=== PATIENT | male | born 1980 | race Caucasian/White ===

== ENCOUNTER 2016-05-10 16:10 | Emergency (ER) | payer BC ==
[~2016-05-10] VITALS: Wt 93.5 kg
[~2016-05-10 16:10] MED LIST: CYCL-319 PO; CYCL5TAB PO; HYDR-3498 PO; HYDR-906 PO; IBUP-1542 PO; METAM PO; ONDA4TAB14 PO; ONDA4TAB35 PO; ZOF8 PO
[2016-05-10 17:39] LABS: ADD UMIC NO; URINE BILIRUBIN (Dip) NEGATIVE (NEGATIVE); URINE BLOOD (Dip) NEGATIVE (NEGATIVE); URINE COLOR LT. YELLOW (YELLOW); URINE GLUCOSE (Dip) NEGATIVE (NEGATIVE); URINE KETONES (Dip) NEGATIVE (NEGATIVE); URINE LEUKOCYTE ESTERASE (Dip) NEGATIVE (NEGATIVE); URINE NITRITE (Dip) NEGATIVE (NEGATIVE); URINE TOTAL PROTEIN (Dip) NEGATIVE (NEGATIVE); URINE UROBILINOGEN (Dip) 0.2 E.U./dL (0.1-1.0)
[2016-05-10 17:44] LABS: ALBUMIN 4.2 g/dl (3.3-4.9)
[2016-05-10 17:45] LABS: BASOPHILS % 0.8 % (0.0-2.0); EOSINOPHILS # 0.1 10^3/ul (0.0-0.5); EOSINOPHILS % 1.7 % (0.0-7.0); HEMATOCRIT 44.4 % (42.0-52.0); HEMOGLOBIN 15.8 g/dl (14.0-18.0); LYMPHOCYTES # 1.9 10^3/ul (0.8-2.9); LYMPHOCYTES % 33.9 % (15.0-51.0); MEAN CORPUSCULAR HEMOGLOBIN 32.3 pg (29.0-33.0); MEAN CORPUSCULAR HGB CONC 35.5 g/dl (32.0-37.0); MEAN CORPUSCULAR VOLUME 90.9 fl (82.0-101.0); MEAN PLATELET VOLUME 8.8 fl (7.4-10.4); MONOCYTE # 0.4 10^3/ul (0.3-0.9); MONOCYTES % 7.9 % (0.0-11.0); NEUTROPHIL # 3.1 10^3/ul (1.6-7.5); NEUTROPHILS % 55.7 % (39.0-77.0); PLATELET COUNT 194 10^3/UL (140-440); POTASSIUM 3.7 mmol/L (3.5-5.1); RED BLOOD COUNT 4.88 10^6/ul (4.70-6.10); UNCORRECTED WBC 5.6 10^3/ul (4.8-10.8); WHITE BLOOD COUNT 5.6 10^3/ul (4.8-10.8)
[2016-05-10 17:46] LABS: CONDITION 1
[2016-05-10 17:47] LABS: ALBUMIN/GLOBULIN RATIO 1.31; BILIRUBIN,INDIRECT 0.4 mg/dl (0-1.1); BILIRUBIN,TOTAL 0.4 mg/dl (0.2-1.3); CREATININE 1.01 mg/dl (0.61-1.24); TOTAL PROTEIN 7.4 g/dl (6.1-8.1)
[2016-05-10 17:48] LABS: CALCIUM 9.3 mg/dl (8.4-10.2)
[2016-05-10] MEDS ORDERED: SOD CHLORIDE 0.9% 100 ML ONE (18:10)
[2016-05-10] MEDS ORDERED: IOHEXOL 300MG/ML 150 ML BTL ONE (18:10)
[2016-05-10] MEDS ORDERED: ONDANSETRON 4 MG INJ IV STA (18:24)
[2016-05-10] MEDS ORDERED: DIPHENHYDRAMINE 50 MG INJ IV ONE (18:30)
[2016-05-10] MEDS ORDERED: EPINEPHrine 1 MG INJ SC STA (18:35)
[2016-05-10 19:07] VITALS: BP 125/83; PULSE 84; RESP 16
--- NOTE | 2016-05-10 19:24 | RADRPT ---
PROCEDURE: CT abdomen and pelvis with contrast. CLINICAL INDICATION: Abdominal pain with nausea and vomiting TECHNIQUE: CT scan of the abdomen and pelvis without contrast was [facility] axial imaging from the lung bases through the pubis symphysis. The patient was scanned after the uneventful intravenous administration of 100 cc of Omnipaque-300. Sagittal and coronal r eformatted images were made. CTDI vol 25.40 mGy and DLP 825.23 mGy-cm One of the following 3 dose reduction techniques were used during this CT examination: automated exp osure control; adjustment of the mA and /or kV according to patient size; or use of iterative recons truciton technique. COMPARISON: CT abdomen pelvis dated 08/07/2015 FINDINGS: CT abdomen: The lung bases are clear. The visualized heart size is normal. No pericardial or pleural effusions are present. The visualized liver is of normal size and attenuation. The spleen, pancreas, decompressed gallblad maria luisa, and bilateral adrenal glands are normal. The bilateral kidneys are normal with normal contrast opacification and secretion. No evidence for hydroureter nephrosis is present. The visualized bowel demonstrates mild diverticulosis without evidence for acute diverticulitis or a ppendicitis. The aorta is normal without evidence for aneurysmal dilatation. No evidence for abdominal ascites or pneumoperitoneum is present. CT pelvis: The visualized bowel, including the appendix, is normal in appearance. Mild prostatic enlargement is present with prostatic calcifications. No evidence for masses in the pelvis ascites or pneumoperit oneum is present. The visualized osseous structures are normal. No evidence for lytic or blastic lesions are present. IMPRESSION: 1. No evidence for acute intra-abdominal or pelvic pathology. 2. Mild diverticulosis without evidence for acute diverticulitis or appendicitis. 3. Mild prostatic enlargement with prostatic calcifications. RPTAT: HDC .Andreina Capellan MD, MD Date Time Electronically viewed and signed by .Andreina Capellan MD, MD on 05/10/2016 19:23 .C/
[2016-05-10] MEDS ORDERED: IBUP-1542 PO (19:28)
[2016-05-10] MEDS ORDERED: DOCU-144 PO (19:28)
--- NOTE | 2016-05-10 19:31 | ERD ---
ER Documentation Chief Complaint Date/Time DATE: 05/10/16 TIME: 19:30 Chief Complaint LOWER ABD PAIN X 3 DAYS HPI This 36-year-old male complains of left lower abdominal pain intermittently for the last week of a worse over the last day. He denies fevers, vomiting, shortness breath or chest pain. Denies any urinary complaints. He denies any right-sided abdominal pain. Denies any history of diarrhea or constipation. ROS All systems reviewed and are negative except as per history of present illness. Medications Home Meds Active Scripts Docusate Sodium* (Colace*) 100 Mg Capsule, 100 MG PO BID WITH MEALS, #30 CAP Prov:SUSANNA QUILES MD 05/10/16 Ibuprofen* (Motrin*) 600 Mg Tab, 600 MG PO Q6, #20 TAB Prov:SUSANNA QUILES MD 05/10/16 Cyclobenzaprine Hcl* (Cyclobenzaprine Hcl*) 5 Mg Tablet, 5 MG PO Q8H Y for PAIN , #20 TAB Prov:SHAYNA CRUZ PA-C 04/12/16 Ibuprofen* (Motrin*) 600 Mg Tab, 600 MG PO Q6, #30 TAB Prov:SHAYNA CRUZ PA-C 04/12/16 Ibuprofen* (Motrin*) 600 Mg Tab, 600 MG PO Q6, #30 TAB Prov:CARMENCITA MARIN PA-C 02/10/16 Ondansetron (Ondansetron Odt) 4 Mg Tab.rapdis, 4 MG PO Q6H Y for NAUSEA AND/OR VOMITING, #20 TAB Prov:CARMENCITA MARIN PA-C 02/10/16 Hydrocodone/Acetaminophen ([place] 5-325 Tablet) 1 Each Tablet, 1 TAB PO Q6H Y for PAIN, #7 TAB Prov:ARYAN LEGGETT NP 12/31/15 Ibuprofen* (Motrin*) 600 Mg Tab, 600 MG PO Q6, #30 TAB Prov:ARYAN LEGGETT NP 12/31/15 Psyllium* (Metamucil*) 1 Pkt Susp, 1 PKT PO BID for 14 Days, PACKET Prov:BRIT RODRÍGUEZ PA-C 08/07/15 Ibuprofen* (Motrin*) 600 Mg Tab, 600 MG PO Q6, #14 TAB Prov:SUSANNA QUILES MD 07/15/15 Ondansetron Hcl* (Zofran* ODT) 8 mg -ODT Tab.disper, 8 MG PO Q6 Y for NAUSEA AND /OR VOMITING, #8 TAB Prov:SUSANNA QUILES MD 07/15/15 Hydrocodone Bit-Acetaminophen* ([place]*) 5-325 Mg Tab, 1 TAB PO QHS Y for PAIN, # 5 TAB 0 Refills Prov:KAYLIE ALEXANDER PA-C 05/01/15 Cyclobenzaprine Hcl* (Cyclobenzaprine Hcl*) 10 Mg Tablet, 10 MG PO DAILY Y for PAIN, #30 TAB 0 Refills Prov:KAYLIE ALEXANDER PA-C 05/01/15 Ondansetron Hcl* (Zofran* ODT) 4 mg -ODT Tab.disper, 4 MG PO Q8 Y for NAUSEA AND OR VOMITING, #30 TAB Prov:NELLY CROFT NP 01/18/15 Ibuprofen* (Ibuprofen*) 600 Mg Tablet, 600 MG PO Q6H Y for PA, #30 TAB Prov:NELLY CROFT NP 01/18/15 Allergies Allergies: Coded Allergies: No Known Allergy (Unverified , 05/01/15) PMhx/Soc History of Surgery: No Anesthesia Reaction: No Hx Neurological Disorder: No Hx Respiratory Disorders: No Hx Cardiac Disorders: No Hx Psychiatric Problems: No Hx Miscellaneous Medical Probl: Yes (Chronic back pain) Hx Alcohol Use: No Hx Substance Use: No Hx Tobacco Use: No Physical Exam Vitals Vital Signs Date Time Temp Pulse Resp B/P Pulse Ox O2 Delivery O2 Flow Rate FiO2 05/10/16 19:07 84 16 125/83 100 05/10/16 18:28 113 18 151/66 99 Room Air 05/10/16 16:18 99.2 102 18 131/73 99 Physical Exam Const: [] Alert, [id number]. Head: Atraumatic Eyes: Normal Conjunctiva ENT: Normal External Ears, Nose and Mouth. Neck: Full range of motion..~ No meningismus. Resp: Clear to auscultation bilaterally Cardio: Regular rate and rhythm, no murmurs Abd: Soft, minimal tenderness in the left lower quadrant. No rebound. Mentation appropriate's point no Sepulveda sign. R, non distended. Normal bowel sounds Skin: No petechiae or rashes Back: No midline or flank tenderness Ext: No cyanosis, or edema Neur: Awake and alert Psych: Normal Mood and Affect Result Diagram: 05/10/167 05/10/16 1727 Results 24 hrs Laboratory Tests Test 05/10/16 17:27 Alanine Aminotransferase (ALT/SGPT) 35IU/L Albumin 4.2g/dl Albumin/Globulin Ratio 1.31 Alkaline Phosphatase 64IU/L Anion Gap 15 Aspartate Amino Transf (AST/SGOT) 25IU/L Basophils # 0.010^3/ul Basophils % 0.8% Blood Urea Nitrogen 18mg/dl Calcium Level 9.3mg/dl Carbon Dioxide Level 30mmol/L Chloride Level 102mmol/L Creatinine 1.01mg/dl Direct Bilirubin 0.00mg/dl Eosinophils # 0.110^3/ul Eosinophils % 1.7% Globulin 3.20g/dl Glucose Level 97mg/dl Hematocrit 44.4% Hemoglobin 15.8g/dl Indirect Bilirubin 0.4mg/dl Lipase 98U/L Lymphocytes # 1.910^3/ul Lymphocytes % 33.9% Mean Corpuscular Hemoglobin 32.3pg Mean Corpuscular Hemoglobin Concent 35.5g/dl Mean Corpuscular Volume 90.9fl Mean Platelet Volume 8.8fl Monocytes # 0.410^3/ul Monocytes % 7.9% Neutrophils # 3.110^3/ul Neutrophils % 55.7% Nucleated Red Blood Cells # 0.010^3/ul Nucleated Red Blood Cells % 0.0/100WBC Platelet Count 90679^3/UL Potassium Level 3.7mmol/L Red Blood Count 4.8810^6/ul Red Cell Distribution Width 12.0% Sodium Level 143mmol/L Total Bilirubin 0.4mg/dl Total Protein 7.4g/dl Urine Bilirubin NEGATIVE Urine Clarity CLEAR Urine Color LT. YELLOW Urine Glucose NEGATIVE% Urine Hemoglobin NEGATIVE Urine Ketones NEGATIVE Urine Leukocyte Esterase NEGATIVE Urine Nitrite NEGATIVE Urine Specific [place] 1.015 Urine Total Protein NEGATIVE Urine Urobilinogen 0.2 E.U./dL Urine pH 6.5 White Blood Count 5.610^3/ul Current Medications Medications (Trade) Dose Ordered Sig/Mago Route PRN Reason Start Time Stop Time Status Last Admin Dose Admin IV Flush 10 ml 10 ml STK-MED ONCE .ROUTE 05/10/16 18:10 05/10/16 18:11 DC 05/10/16 18:16 Sodium Chloride (NS) 100 ml @ ud STK-MED ONCE .ROUTE 05/10/16 18:10 05/10/16 18:11 DC 05/10/16 18:17 Iohexol (Omnipaque 300mg/ ml) 150 ml STK-MED ONCE .ROUTE 05/10/16 18:10 05/10/16 18:11 DC 05/10/16 18:17 Ondansetron HCl (Zofran Inj) 4 mg ONCE STAT IV 05/10/16 18:24 05/10/16 18:25 DC 05/10/16 18:32 Diphenhydramine HCl (Benadryl) 25 mg ONCE ONCE IV 05/10/16 18:30 05/10/16 18:31 DC 05/10/16 18:32 Epinephrine (EPINEPHrine) 0.3 mg ONCE STAT SC 05/10/16 18:35 05/10/16 18:38 DC 05/10/16 18:40 Procedures/MDM Given the location of pain and IV was obtained. CBC, CMP and lipase are normal. Urine is negative for leukocytes, blood, glucose, nitrites. CT abdomen pelvis with IV contrast was normal by the radiologist. Patient experienced a rash and itchy throat after IV contrast and CT scan and vomiting. Patient was given Zofran 4 mg IV, Benadryl 25 mg IV and epinephrine 0.3 mg subcutaneously. Patient improving a rash and symptoms. Patient was otherwise stable throughout the ER course. Patient was left lower quadrant abdominal pain which is intermittent crampy for the last week of uncertain etiology. There is diverticulosis noted without diverticulitis. There is no evidence of genitourinary etiology, abscess, appendicitis, hepatobiliary disease. We discharged home with prescription ibuprofen and Colace and observation at home. Should return for fevers, vomiting or worsening pain, neurologic symptoms as directed after instructions. Departure Diagnosis: Primary Impression: Abdominal pain Abdominal location: left lower quadrant Qualified Code: R10.32 - Left lower quadrant pain Additional Impression: Diverticula of colon Diverticulosis bleeding: diverticulosis without bleeding Qualified Code: K57.30 - Diverticulosis of large intestine without hemorrhage Condition: Stable Patient Instructions: Abdominal Pain Additional Instructions: All exams normal today. Recommend rest, bland diet recheck for fevers, vomiting , blood, new or worsening symptoms. SUSANNA QUILES MD May 10, 2016 19:31
== END 2016-05-10 20:00 | disposition home or self-care (01) ==
LOC: FTE 16:10
DX: R10.32 Left lower quadrant pain (principal); K57.30 Diverticulosis of large intestine without perforation or abscess without bleeding; R11.10 Vomiting, unspecified
CPT/HCPCS: 36415; 74177; 80053; 81003; 83690; 85025; 96372; 96374; 96375; 99285; J0171; J1200; J2405; Q9967; Z7610

== ENCOUNTER 2016-08-25 19:52 | Emergency (ER) | payer BC ==
[~2016-08-25] VITALS: Ht 180.3 cm; Wt 93.5 kg
[~2016-08-25 19:52] MED LIST changes: +DOCU-144 PO
[2016-08-25 19:56] VITALS: Ht 180.3 cm; Wt 93.5 kg
[2016-08-25 20:38] LABS: URINE BLOOD (Dip) POC Negative (NEGATIVE)
--- NOTE | 2016-08-25 20:57 | ERD ---
ER Documentation Chief Complaint Date/Time DATE: 08/25/16 TIME: 20:55 Chief Complaint intermittent testicular pain x1 week, no swelling, no dysuria HPI This is a 36-year-old male who presents to the emergency department today complaining of intermittent testicular pain for the past week. Patient states that the pain started in his right testicle and he noticed it while at work lifting some heavy bags. Patient states that the pain improved for a couple days and then returned for approximately 1 hour each day and then resolved. Patient indicated that the pain is better with support. He describes it as an achy pain. States he took ibuprofen today which helped with the pain. States he has 1 sexual partner. Denies any dysuria, abdominal pain. Denies any fevers or chills. ROS All systems reviewed and are negative except as per history of present illness. Medications Home Meds Active Scripts Acetaminophen* (Tylophen*) 500 Mg Capsule, 1 CAP PO Q6H Y for PAIN AND OR ELEVATED TEMP, #30 CAP Prov:BRIT RODRÍGUEZ PA-C 08/25/16 Naproxen* (Naprosyn*) 500 Mg Tablet, 500 MG PO BID Y for PAIN AND/OR INFLAMMATION, #30 TAB Prov:BRIT RODRÍGUEZ PA-C 08/25/16 Docusate Sodium* (Colace*) 100 Mg Capsule, 100 MG PO BID WITH MEALS, #30 CAP Prov:SUSANNA QUILES MD 05/10/16 Ibuprofen* (Motrin*) 600 Mg Tab, 600 MG PO Q6, #20 TAB Prov:SUSANNA QUILES MD 05/10/16 Cyclobenzaprine Hcl* (Cyclobenzaprine Hcl*) 5 Mg Tablet, 5 MG PO Q8H Y for PAIN , #20 TAB Prov:SHAYNA CRUZ PA-C 04/12/16 Ibuprofen* (Motrin*) 600 Mg Tab, 600 MG PO Q6, #30 TAB Prov:SHAYNA CRUZ PA-C 04/12/16 Ibuprofen* (Motrin*) 600 Mg Tab, 600 MG PO Q6, #30 TAB Prov:CARMENCITA MARIN PA-C 02/10/16 Ondansetron (Ondansetron Odt) 4 Mg Tab.rapdis, 4 MG PO Q6H Y for NAUSEA AND/OR VOMITING, #20 TAB Prov:CARMENCITA MARINC 02/10/16 Hydrocodone/Acetaminophen ([place] 5-325 Tablet) 1 Each Tablet, 1 TAB PO Q6H Y for PAIN, #7 TAB Prov:ARYAN LEGGETT NP 12/31/15 Ibuprofen* (Motrin*) 600 Mg Tab, 600 MG PO Q6, #30 TAB Prov:ARYAN LEGGETT NP 12/31/15 Psyllium* (Metamucil*) 1 Pkt Susp, 1 PKT PO BID for 14 Days, PACKET Prov:BRIT RODRÍGUEZC 08/07/15 Ibuprofen* (Motrin*) 600 Mg Tab, 600 MG PO Q6, #14 TAB Prov:SUSANNA QUILES MD 07/15/15 Ondansetron Hcl* (Zofran* ODT) 8 mg -ODT Tab.disper, 8 MG PO Q6 Y for NAUSEA AND /OR VOMITING, #8 TAB Prov:SUSANNA QUILES MD 07/15/15 Hydrocodone Bit-Acetaminophen* ([place]*) 5-325 Mg Tab, 1 TAB PO QHS Y for PAIN, # 5 TAB 0 Refills Prov:KAYLIE ALEXANDER PA-C 05/01/15 Cyclobenzaprine Hcl* (Cyclobenzaprine Hcl*) 10 Mg Tablet, 10 MG PO DAILY Y for PAIN, #30 TAB 0 Refills Prov:KAYLIE ALEXANDER PA-C 05/01/15 Ondansetron Hcl* (Zofran* ODT) 4 mg -ODT Tab.disper, 4 MG PO Q8 Y for NAUSEA AND OR VOMITING, #30 TAB Prov:NELLY CROFT NP 01/18/15 Ibuprofen* (Ibuprofen*) 600 Mg Tablet, 600 MG PO Q6H Y for PA, #30 TAB Prov:NELLY CROFT NP 01/18/15 Allergies Allergies: Coded Allergies: Iodinated Contrast Media - Oral and (Verified Allergy, Severe, 08/25/16) PMhx/Soc Medical and Surgical Hx: pt denies Medical Hx, pt denies Surgical Hx History of Surgery: No Anesthesia Reaction: No Hx Neurological Disorder: No Hx Respiratory Disorders: No Hx Cardiac Disorders: No Hx Psychiatric Problems: No Hx Miscellaneous Medical Probl: No Hx Alcohol Use: Yes Hx Substance Use: Yes (marijuana) Hx Tobacco Use: No Physical Exam Vitals Vital Signs Date Time Temp Pulse Resp B/P Pulse Ox O2 Delivery O2 Flow Rate FiO2 08/25/16 19:56 98.3 78 20 132/79 99 Physical Exam Const: No acute distress Head: Atraumatic Eyes: Normal Conjunctiva ENT: Normal External Ears, Nose and Mouth. Neck: Full range of motion..~ No meningismus. Resp: Clear to auscultation bilaterally Cardio: Regular rate and rhythm, no murmurs Abd: Soft, non tender, non distended. Normal bowel sounds : Testicular exam. Uncircumcised penis. No purulent drainage. Nontender to palpation right or left testicle. No erythema or warmth. Testicles descended bilaterally. No evidence of hernia. Skin: No petechiae or rashes Back: No midline or flank tenderness Ext: No cyanosis, or edema Neur: Awake and alert Psych: Normal Mood and Affect Results 24 hrs Laboratory Tests Test 08/25/16 20:39 Bedside Urine pH (LAB) 7.0 Bedside Urine Protein (LAB) Negative Bedside Urine Glucose (UA) Negative Bedside Urine Ketones (LAB) Negative Bedside Urine Blood Negative Bedside Urine Nitrite (LAB) Negative Bedside Urine Leukocyte Esterase (L Negative Current Medications Medications (Trade) Dose Ordered Sig/Mago Route PRN Reason Start Time Stop Time Status Last Admin Dose Admin Ibuprofen (Motrin) 800 mg ONCE ONCE PO 08/25/16 21:30 08/25/16 21:31 DC 08/25/16 21:14 DIAGNOSTIC IMAGING REPORT Patient: SAMI TORREZ : 1980 Age: 36 Sex: M [id number] [id number] DOS: 08/25/16 0000 Ordering MD: BRIT RODRÍGUEZ PA-C Location: [facility] Room/Bed: PROCEDURE: US Scrotum. CLINICAL INDICATION: Testicular pain times 1 week right greater than left TECHNIQUE: Multiple sonographic images of the scrotal region were obtained utilizing a linear array transducer with grayscale and color-flow Doppler imaging. The images were reviewed on a high-resolution PACS workstation. COMPARISON: CT abdomen and pelvis with contrast of 05/10/2016 FINDINGS: The right testicle is well visualized and has a normal echotexture. No focal areas of abnormal echogenicity are visualized. The right testicle measures 4.4 x 2.4 x 3.6 cm. There is normal color-flow and arterial flow. The right epididymis is visualized and unremarkable in appearance. There is normal color- flow. There is a small to moderate hydrocele. There is a varicocele. The left testicle is well visualized and has a normal echotexture. No focal areas of abnormal echogenicity are visualized. The left testicle measures 4 x 2.8 x 3.4 cm. There is normal color-flow and arterial flow. There is a 5 mm epididymal cyst in the left epididymal head. There is a moderate hydrocele. There is a varicocele. IMPRESSION: 5 mm epididymal cyst. Small to moderate right hydrocele and moderate left hydrocele. Bilateral varicocele. No evidence of testicular torsion. RPTAT: HJES .Mark Mcallister MD, MD Date Time Electronically viewed and signed by .Mark Mcallister MD, MD on 08/25/2016 22:10 .S/ CC: BRIT RODRÍGUEZ PA-C Procedures/[facility] This a 36-year-old male who presents the emergency department today complaining of intermittent testicular pain for the past week. Patient indicated that was both of his testicles had pain but his right is worse than left. Given patient' s complaints I did obtain a testicular ultrasound as well as UA is negative for infection Urine was sent for gonorrhea and chlamydia Testicular US shows a 5 mm epididymal cyst. There is small to moderate right hydrocele and moderate left hydrocele. There are bilateral varicocele. There is no evidence of testicular torsion. Patient symptoms at this time most consistent with bilateral testicular pain right greater than left. May be secondary to varicoceles. I have explained this to the patient. Patient was instructed to follow-up with his primary care physician for referral to urology. I have given him a list of urology referral information Low suspicion for epididymitis, orchitis, testicular torsion, mass Patient was given Motrin here in the emergency department. I will give him a short course of Naprosyn and Tylenol for home. At this time the patient is stable for discharge and outpatient management. Patient should follow up with their PCP in the next 1-2 days. They may return to the emergency department sooner for any persistent or worsening of symptoms. Patient understood and agreed with the plan. Departure Diagnosis: Primary Impression: Pain in testicle Condition: BRIT Agosto PA-C August 25, 2016 20:57
[2016-08-25] MEDS ORDERED: IBUPROFEN 800 MG TAB PO ONE (21:30)
--- NOTE | 2016-08-25 22:11 | RADRPT ---
PROCEDURE: US Scrotum. CLINICAL INDICATION: Testicular pain times 1 week right greater than left TECHNIQUE: Multiple sonographic images of the scrotal region were obtained utilizing a linear arra y transducer with grayscale and color-flow Doppler imaging. The images were reviewed on a high-resol [employer] PACS workstation. COMPARISON: CT abdomen and pelvis with contrast of 05/10/2016 FINDINGS: The right testicle is well visualized and has a normal echotexture. No focal areas of abnormal echog enicity are visualized. The right testicle measures 4.4 x 2.4 x 3.6 cm. There is normal color-flow and arterial flow. The right epididymis is visualized and unremarkable in appearance. There is víctor l color-flow. There is a small to moderate hydrocele. There is a varicocele. The left testicle is well visualized and has a normal echotexture. No focal areas of abnormal echoge nicity are visualized. The left testicle measures 4 x 2.8 x 3.4 cm. There is normal color-flow and a rterial flow. There is a 5 mm epididymal cyst in the left epididymal head. There is a moderate hydr ocele. There is a varicocele. IMPRESSION: 5 mm epididymal cyst. Small to moderate right hydrocele and moderate left hydrocele. Bilateral steve icocele. No evidence of testicular torsion. RPTAT: HJES .Mark Mcallister MD, MD Date Time Electronically viewed and signed by .Mark Mcallister MD, MD on 08/25/2016 22:10 .S/
[2016-08-25] MEDS ORDERED: NAPR-260 PO (22:42)
[2016-08-25] MEDS ORDERED: ACET500C5 PO (22:42)
[2016-08-25 22:57] VITALS: BP 125/67; PULSE 83; RESP 20
== END 2016-08-25 22:58 | disposition home or self-care (01) ==
LOC: FTE 19:52
DX: N50.811 Right testicular pain (principal)
CPT/HCPCS: 76870; 81003; 87591; 99284; Z7610

== ENCOUNTER 2016-11-26 20:27 | Emergency (ER) | payer BC ==
[~2016-11-26] VITALS: Ht 175.3 cm; Wt 91.0 kg
[~2016-11-26 20:27] MED LIST changes: +ACET500C5 PO; +NAPR-260 PO
[2016-11-26 21:02] VITALS: Ht 175.3 cm; Wt 91.0 kg
[2016-11-26] MEDS ORDERED: ONDANSETRON (ODT) 4 MG TAB ODT STA (22:27)
[2016-11-26] MEDS ORDERED: FAMOTIDINE 20 MG TAB PO STA (22:27)
[2016-11-26] MEDS ORDERED: HYDROCODONE/APAP (5/325) TAB PO ONE (22:30)
--- NOTE | 2016-11-26 22:37 | ERD ---
ER Documentation Chief Complaint Date/Time DATE: 11/26/16 TIME: 22:34 Chief Complaint abd pain x 2 weeks, intermittent. +nausea, -v/d. Took Zofran HPI This a 36-year-old male who presents the emergency department today for intermittent abdominal pain for the past 2 weeks. Patient states that a few days ago he was drinking and he had some nausea after that he thought that that might of been the problem. States that he feels "pressure in his stomach. States it has happened 4 times in the past couple of weeks. Denies any constipation, dysuria, fevers or chills. States the pain is intermittent. States he had some nausea and he took a Zofran and his nausea improved. States he has a history of H. pylori. ROS All systems reviewed and are negative except as per history of present illness. Medications Home Meds Active Scripts Famotidine* (Pepcid*) 20 Mg Tablet, 20 MG PO BID for 10 Days, TAB Prov:BRIT RODRÍGUEZ PA-C 11/27/16 Ondansetron Hcl* (Zofran*) 4 Mg Tablet, 4 MG PO Q6H for NAUSEA AND/OR VOMITING, #30 TAB Prov:BRIT RODRÍGUEZ PA-C 11/27/16 Acetaminophen* (Tylophen*) 500 Mg Capsule, 1 CAP PO Q6H Y for PAIN AND OR ELEVATED TEMP, #30 CAP Prov:PROBRIT HELLERC 11/27/16 Acetaminophen* (Tylophen*) 500 Mg Capsule, 1 CAP PO Q6H Y for PAIN AND OR ELEVATED TEMP, #30 CAP Prov:BRIT RODRÍGUEZ PA-C 08/25/16 Naproxen* (Naprosyn*) 500 Mg Tablet, 500 MG PO BID Y for PAIN AND/OR INFLAMMATION, #30 TAB Prov:PROBRIT HELLER PA-C 08/25/16 Docusate Sodium* (Colace*) 100 Mg Capsule, 100 MG PO BID WITH MEALS, #30 CAP Prov:SUSANNA QUILES MD 05/10/16 Ibuprofen* (Motrin*) 600 Mg Tab, 600 MG PO Q6, #20 TAB Prov:SUSANNA QUILES MD 05/10/16 Cyclobenzaprine Hcl* (Cyclobenzaprine Hcl*) 5 Mg Tablet, 5 MG PO Q8H Y for PAIN , #20 TAB Prov:SHAYNA CRUZ PA-C 04/12/16 Ibuprofen* (Motrin*) 600 Mg Tab, 600 MG PO Q6, #30 TAB Prov:SHAYNA CRUZ PA-C 04/12/16 Ibuprofen* (Motrin*) 600 Mg Tab, 600 MG PO Q6, #30 TAB Prov:CARMENCITA MARIN PA-C 02/10/16 Ondansetron (Ondansetron Odt) 4 Mg Tab.rapdis, 4 MG PO Q6H Y for NAUSEA AND/OR VOMITING, #20 TAB Prov:CARMENCITA MARIN PA-C 02/10/16 Hydrocodone/Acetaminophen ([place] 5-325 Tablet) 1 Each Tablet, 1 TAB PO Q6H Y for PAIN, #7 TAB Prov:ARYAN LEGGETT NP 12/31/15 Ibuprofen* (Motrin*) 600 Mg Tab, 600 MG PO Q6, #30 TAB Prov:ARYAN LEGGETT NP 12/31/15 Psyllium* (Metamucil*) 1 Pkt Susp, 1 PKT PO BID for 14 Days, PACKET Prov:BRIT RODRÍGUEZ PA-C 08/07/15 Ibuprofen* (Motrin*) 600 Mg Tab, 600 MG PO Q6, #14 TAB Prov:SUSANNA QUILES MD 07/15/15 Ondansetron Hcl* (Zofran* ODT) 8 mg -ODT Tab.disper, 8 MG PO Q6 Y for NAUSEA AND /OR VOMITING, #8 TAB Prov:SUSANNA QUILES MD 07/15/15 Hydrocodone Bit-Acetaminophen* ([place]*) 5-325 Mg Tab, 1 TAB PO QHS Y for PAIN, # 5 TAB 0 Refills Prov:KAYLIE ALEXANDER PA-C 05/01/15 Cyclobenzaprine Hcl* (Cyclobenzaprine Hcl*) 10 Mg Tablet, 10 MG PO DAILY Y for PAIN, #30 TAB 0 Refills Prov:KAYLIE ALEXANDER PA-C 05/01/15 Ondansetron Hcl* (Zofran* ODT) 4 mg -ODT Tab.disper, 4 MG PO Q8 Y for NAUSEA AND OR VOMITING, #30 TAB Prov:NELLY CROFT NP 01/18/15 Ibuprofen* (Ibuprofen*) 600 Mg Tablet, 600 MG PO Q6H Y for PA, #30 TAB Prov:NELLY CROFT BELL Mateus TRAFFIC ADMINISTRATOR 01/18/15 Allergies Allergies: Coded Allergies: Iodinated Contrast- Oral and IV Dye (Verified Allergy, Severe, 11/26/16) PMhx/Soc History of Surgery: No Anesthesia Reaction: No Hx Neurological Disorder: No Hx Respiratory Disorders: No Hx Cardiac Disorders: No Hx Psychiatric Problems: No Hx Miscellaneous Medical Probl: No Hx Alcohol Use: Yes Hx Substance Use: Yes (marijuana) Hx Tobacco Use: No Smoking Status: Current every day smoker Physical Exam Vitals Vital Signs Date Time Temp Pulse Resp B/P Pulse Ox O2 Delivery O2 Flow Rate FiO2 11/26/16 21:02 98.6 77 18 126/71 98 Physical Exam Const: No acute distress Head: Atraumatic Eyes: Normal Conjunctiva ENT: Normal External Ears, Nose and Mouth. Neck: Full range of motion..~ No meningismus. Resp: Clear to auscultation bilaterally Cardio: Regular rate and rhythm, no murmurs Abd: Soft, epigastric, right upper quadrant and left upper quadrant mild tenderness palpation non distended. Normal bowel sounds. No tenderness McBurney 's. No left lower quadrant pain. Skin: No petechiae or rashes Back: No midline or flank tenderness Ext: No cyanosis, or edema Neur: Awake and alert Psych: Normal Mood and Affect Result Diagram: 11/26/16 2300 11/26/16 2300 Results 24 hrs Laboratory Tests Test 11/26/16 23:00 11/26/16 23:20 White Blood Count 8.910^3/ul Red Blood Count 5.1010^6/ul Hemoglobin 16.4g/dl Hematocrit 44.9% Mean Corpuscular Volume 88.0fl Mean Corpuscular Hemoglobin 32.2pg Mean Corpuscular Hemoglobin Concent 36.5g/dl Red Cell Distribution Width 11.4% Platelet Count 13345^3/UL Mean Platelet Volume 10.0fl Neutrophils % 73.8% Lymphocytes % 18.7% Monocytes % 6.5% Eosinophils % 0.6% Basophils % 0.3% Nucleated Red Blood Cells % 0.0/100WBC Neutrophils # (Manual) 6.610^3/ul Lymphocytes # 1.710^3/ul Monocytes # 0.610^3/ul Eosinophils # 0.110^3/ul Basophils # 0.010^3/ul Nucleated Red Blood Cells # 0.010^3/ul Sodium Level 142mmol/L Potassium Level 3.8mmol/L Chloride Level 99mmol/L Carbon Dioxide Level 26mmol/L Anion Gap 21 Blood Urea Nitrogen 15mg/dl Creatinine 0.93mg/dl Glucose Level 118mg/dl Calcium Level 9.6mg/dl Total Bilirubin 0.6mg/dl Direct Bilirubin 0.00mg/dl Indirect Bilirubin 0.6mg/dl Aspartate Amino Transf (AST/SGOT) 29IU/L Alanine Aminotransferase (ALT/SGPT) 40IU/L Alkaline Phosphatase 80IU/L Total Protein 8.1g/dl Albumin 4.8g/dl Globulin 3.30g/dl Albumin/Globulin Ratio 1.45 Lipase 130U/L Urine Color COLORLESS Urine Clarity CLEAR Urine pH 6.0 Urine Specific [place] 1.002 Urine Ketones NEGATIVEmg/dL Urine Nitrite NEGATIVEmg/dL Urine Bilirubin NEGATIVEmg/dL Urine Urobilinogen NEGATIVEmg/dL Urine Leukocyte Esterase NEGATIVELeu/ul Urine Hemoglobin NEGATIVEmg/dL Urine Glucose NEGATIVEmg/dL Urine Total Protein NEGATIVEmg/dl Current Medications Medications (Trade) Dose Ordered Sig/Mago Route PRN Reason Start Time Stop Time Status Last Admin Dose Admin Acetaminophen/ Hydrocodone Bitart ([place] (5/325)) 1 tab ONCE ONCE PO 11/26/16 22:30 11/26/16 22:31 DC 11/26/16 23:06 Famotidine (Pepcid) 20 mg ONCE STAT PO 11/26/16 22:27 11/26/16 22:30 DC 11/26/16 23:07 Ondansetron HCl (Zofran Odt) 4 mg ONCE STAT ODT 11/26/16 22:27 11/26/16 22:30 DC 11/26/16 23:06 DIAGNOSTIC IMAGING REPORT Patient: SAMI TORREZ : 1980 Age: 36 Sex: M MR #: [id number] DOS: 11/26/167 Ordering MD: BRIT RODRÍGUEZ PA-C Location: [facility] Room/Bed: PROCEDURE: US right upper quadrant CLINICAL INDICATION: Abdominal pain TECHNIQUE: Multiple real-time images were acquired of the patient's right upper abdomen utilizing a high resolution transducer. COMPARISON: CT abdomen and pelvis 05/10/2016 FINDINGS: Liver: Normal in size, contour and echogenicity. Normal directional blood flow is seen within the patent main portal vein. The maximum dimension estimated at 15.8 cm . Gallbladder: Normal. No sonographic Sepulveda's sign is reported. Common bile duct: Normal; 5.4 mm. There is no evidence for choledocholithiasis. Right Kidney: Normal; maximum length measured at approximately 10.8 cm. Pancreas: Visualized portions are normal. The tail is partially obscured by bowel gas. RPTAT:HJJR IMPRESSION: Normal right upper quadrant ultrasound. Physician Abhinav Date Time Electronically viewed and signed by Physician Abhinav on 11/26/2016 23:17 JR/ CC: BRIT RODRÍGUEZ PA-C Procedures/MDM Is a 36-year-old male who presents to the emergency department today complaining of intermittent abdominal pain for the past 2 weeks that last approximately 20 minutes and then resolves. Given patient's location of pain I did obtain laboratory work as well as a right upper quadrant ultrasound. Laboratory workup shows no elevated white blood cell count. He is not anemic. Platelets are within normal limits. Electrolytes are within normal limits. Glucose within normal limits. Liver enzymes are within normal limits. Lipase within normal limits per UA is negative for infection Right upper quadrant ultrasound is negative Patient was given [place], Zofran and Pepcid here in the emergency department. Patient's pain is intermittent. He has no elevated white blood cell count. He has no tenderness McBurney's and have low suspicion for acute appendicitis or acute surgical abdomen. Patient is afebrile and otherwise well-appearing. Patient has abdominal pain of uncertain etiology. Patient will be given a prescription for Zofran, Pepcid, Tylenol for home At this time the patient is stable for discharge and outpatient management. Patient should follow up with their PCP in the next 1-2 days. They may return to the emergency department sooner for any persistent or worsening of symptoms. Patient understood and agreed with the plan. Departure Diagnosis: Primary Impression: Abdominal pain Abdominal location: upper abdomen, unspecified Qualified Code: R10.10 - Pain of upper abdomen Condition: BRIT Agosto PA-C Nov 26, 2016 22:37
--- NOTE | 2016-11-26 23:17 | RADRPT ---
PROCEDURE: US right upper quadrant CLINICAL INDICATION: Abdominal pain TECHNIQUE: Multiple real-time images were acquired of the patient's right upper abdomen utilizing a high resolution transducer. COMPARISON: CT abdomen and pelvis 05/10/2016 FINDINGS: Liver: Normal in size, contour and echogenicity. Normal directional blood flow is seen within the p atent main portal vein. The maximum dimension estimated at 15.8 cm . Gallbladder: Normal. No sonographic Sepulveda's sign is reported. Common bile duct: Normal; 5.4 mm. There is no evidence for choledocholithiasis. Right Kidney: Normal; maximum length measured at approximately 10.8 cm. Pancreas: Visualized portions are normal. The tail is partially obscured by bowel gas. RPTAT:HJJR IMPRESSION: Normal right upper quadrant ultrasound. Physician Abhinav Date Time Electronically viewed and signed by Physician Abhinav on 11/26/2016 23:17 /
[2016-11-26 23:28] LABS: BASOPHILS % 0.3 % (0.0-2.0); EOSINOPHILS # 0.1 10^3/ul (0.0-0.5); EOSINOPHILS % 0.6 % (0.0-7.0); HEMATOCRIT 44.9 % (42.0-52.0); HEMOGLOBIN 16.4 g/dl (14.0-18.0); LYMPHOCYTES # 1.7 10^3/ul (0.8-2.9); LYMPHOCYTES % 18.7 % (15.0-51.0); MEAN CORPUSCULAR HEMOGLOBIN 32.2 pg (29.0-33.0); MEAN CORPUSCULAR HGB CONC 36.5 g/dl (32.0-37.0); MONOCYTE # 0.6 10^3/ul (0.3-0.9); MONOCYTES % 6.5 % (0.0-11.0); NEUTROPHILS % 73.8 % (39.0-77.0); PLATELET COUNT 196 10^3/UL (140-415); RED CELL DISTRIBUTION WIDTH 11.4 % (11.5-14.5); WHITE BLOOD COUNT 8.9 10^3/ul (4.8-10.8)
[2016-11-26 23:48] LABS: ADD UMIC NO; UR ASCORBIC ACID NEGATIVE (NEGATIVE); UR BILIRUBIN (Dip) NEGATIVE (NEGATIVE); UR BLOOD (Dip) NEGATIVE (NEGATIVE); UR CLARITY CLEAR (CLEAR); UR COLOR COLORLESS (YELLOW); UR GLUCOSE (Dip) NEGATIVE (NEGATIVE); UR KETONES (Dip) NEGATIVE (NEGATIVE); UR LEUKOCYTE ESTERASE (Dip) NEGATIVE Leu/ul (NEGATIVE); UR NITRITE (Dip) NEGATIVE (NEGATIVE); UR SPECIFIC GRAVITY (Dip) 1.002 (1.003-1.030); UR TOTAL PROTEIN (Dip) NEGATIVE (NEGATIVE); UR UROBILINOGEN (Dip) NEGATIVE (NEGATIVE)
[2016-11-26 23:49] LABS: ALBUMIN 4.8 g/dl (3.3-4.9); ALBUMIN/GLOBULIN RATIO 1.45; BILIRUBIN,INDIRECT 0.6 mg/dl (0-1.1); BILIRUBIN,TOTAL 0.6 mg/dl (0.2-1.3); CALCIUM 9.6 mg/dl (8.4-10.2); CREATININE 0.93 mg/dl (0.61-1.24); POTASSIUM 3.8 mmol/L (3.5-5.1); TOTAL PROTEIN 8.1 g/dl (6.1-8.1)
[2016-11-27] MEDS ORDERED: ACET500C5 PO (00:16)
[2016-11-27] MEDS ORDERED: ONDA4TAB8 PO (00:16)
[2016-11-27] MEDS ORDERED: FAMO-96 PO (00:17)
== END 2016-11-26 23:45 | disposition home or self-care (01) ==
LOC: FTE 20:27
DX: R10.11 Right upper quadrant pain (principal); F17.210 Nicotine dependence, cigarettes, uncomplicated; R11.0 Nausea
CPT/HCPCS: 36415; 76705; 80053; 81003; 83690; 85025; 99284; Z7610

== ENCOUNTER 2017-07-23 11:45 | Emergency (ER) | END 2017-07-23 13:55 | disposition home or self-care (01) ==

== ENCOUNTER 2017-12-07 08:17 | Emergency (ER) | END 2017-12-07 10:01 | disposition home or self-care (01) ==